=== PATIENT | female | born 1990 | race Caucasian/White ===

== ENCOUNTER 2021-01-31 06:33 | Outpatient (REF) | payer OTHER, SELFPAY ==
[2021-01-31 07:00] LABS: Hematocrit 38.2 % (37-47); Hemoglobin 13.2 g/dl (12.0-16.0); Mean Corpuscular HGB Conc 34.6 g/dl (31.0-35.0); Mean Corpuscular Hemoglobin 30.1 pg (27.0-33.0); Mean Corpuscular Volume 87.2 fL (80-98); Mean Platelet Volume 10.7 fL (9.4-12.3); Platelet Count 307 X10*3/uL (160-400); Red Blood Count 4.38 X10*6/uL (4.20-5.50); White Blood Count 7.7 X10*3/uL (4.8-10.8)
[2021-01-31 07:19] LABS: Anion Gap 14 (12-20); Blood Urea Nitrogen 11 mg/dL (9-16); Calcium 9.3 mg/dL (8.4-10.2); Carbon Dioxide 25 mmol/L (22-29); Chloride 104 mmol/L (96-108); Cholesterol 152 mg/dL; Estimated Glomerular Filt Rate > 60; Glucose Random 94 mg/dL (60-115); Potassium 3.8 mmol/L (3.3-5.1); Sodium 139 mmol/L (135-145)
[2021-01-31 07:47] LABS: Estimated Average Glucose 91 mg/dL; Hemoglobin A1c % 4.8 %
== END 2021-01-31 06:34 | disposition home or self-care (01) ==
LOC: HO.LAB 06:33
PROVIDERS: Visit Provider Emergency Medicine
DX: R35.8 Other polyuria (principal)
CPT/HCPCS: 36415; 80048; 82465; 83036; 85027

== ENCOUNTER 2021-06-16 23:32 | Outpatient (REF) | payer OTHER, SELFPAY ==
[2021-06-17 01:04] LABS: Influenza A PCR NEGATIVE (Negative); Influenza B PCR NEGATIVE (Negative); Resp Syncy Virus RNA Qual PCR NEGATIVE (Negative); SARS COV2 PCR INHOUSE NEGATIVE (Negative)
== END 2021-06-16 23:33 | disposition home or self-care (01) ==
LOC: HO.ED 23:32
PROVIDERS: Visit Provider Internal Medicine
DX: Z20.822 Contact with and (suspected) exposure to COVID-19 (principal)
CPT/HCPCS: 0241U; 36415

== ENCOUNTER 2021-07-23 02:24 | Outpatient (REF) | payer OTHER, SELFPAY ==
[2021-07-23 03:02] LABS: COVID-19 Test Negative (Negative); IDNOW Serial# 55D5AD1C
== END 2021-07-23 02:25 | disposition home or self-care (01) ==
LOC: HO.LAB 02:24
PROVIDERS: Visit Provider Student in an Organized Health Care Education/Training Program
DX: Z20.822 Contact with and (suspected) exposure to COVID-19 (principal)
CPT/HCPCS: 36415; 87635

== ENCOUNTER 2021-10-05 04:48 | Outpatient (REF) | payer OTHER, SELFPAY ==
[2021-10-05 05:50] LABS: Thyroid Stimulating Hormone 1.59 uIU/mL (0.32-4.0); Vitamin D 25-OH Total 19.1 ng/mL (>30)
[2021-10-07 04:36] LABS: Vitamin B12 360 pg/mL (200-900)
== END 2021-10-05 04:49 | disposition home or self-care (01) ==
LOC: HO.LAB 04:48
PROVIDERS: Emergency Medicine; Visit Provider Internal Medicine
DX: F32.A Depression, unspecified (principal)
CPT/HCPCS: 36415; 82306; 82607; 84443